=== PATIENT | female | born 1950 | race Caucasian/White ===

== ENCOUNTER → 2020-08-03 | Outpatient (CLI) | payer OTHER ==
--- NOTE | 2020-08-03 12:10 | 2DMMODE ---
[facility] [place] [address] 2 D/M-MODE ECHOCARDIOGRAM Name: SHARMILA SOLANO Room #: REG BECCA Lizzie.John.#: [id number] Admission: 08/03/20 Attend Phys: Physician not on staff Discharge: Date of : 48 Report #: [id number] THIS REPORT FOR: cc: Physician not on staff Physician not on staff Chandana Colindres MD [facility] ~ APPROVED REPORT Study performed: 08/03/2020 11:05:12 EXAM: Comprehensive 2D, Doppler, and color-flow Echocardiogram Patient Location: Out-Patient Status: routine BSA: 1.75 HR: 68 bpm BP: 124/80 mmHg Rhythm: NSR Other Information Study Quality: Good Indications Postural hypotension. 2D Dimensions RVDd: 34.66 mm IVSd: 10.33 (7-11mm) LVOT Diam: 18.98 (18-24mm) LVDd: 44.54 mm PWd: 8.16 (7-11mm) LVDs: 25.39 (25-40mm) Aortic Root: 23.59 mm Volumes Left Atrial Volume (Systole) Single Plane 4CH: 39.75 mL Single Plane 2CH: 34.83 mL LA ESV Index: 23.00 mL/m2 Aortic Valve AoV Peak Denis.: 1.11 m/s AO Peak Gr.: 4.94 mmHg LVOT Max P.87 mmHg LVOT Max V: 0.85 m/s LILA Vmax: 2.15 cm2 [facility] [address] [place] [address] 2 D/M-MODE ECHOCARDIOGRAM Name: SHARMILA SOLANO Room #: REG [facility].#: [id number] Admission: 08/03/20 Attend Phys: Physician not on s Discharge: Date of : 48 Report #: [id number] Mitral Valve E/A Ratio: 1.3 MV Decel. Time: 221.71 ms MV E Max Denis.: 0.88 m/s MV A Denis.: 0.66 m/s MV PHT: 64.30 ms IVRT: 92.27 ms Pulmonary Valve PV Peak Denis.: 0.84 m/s PV Peak Gr.: 2.79 mmHg Pulmonary Vein P Vein S: 0.53 m/s P Vein A: 0.27 m/s P Vein D: 0.69 m/s P Vein A Dur.: 152.2 msec P Vein S/D Ratio: 0.77 Tricuspid Valve TR Peak Denis.: 2.51 m/s RAP Estimate: 5.00 mmHg TR Peak Gr.: 25.22 mmHg PA Pressure: 30.00 mmHg Left Ventricle The left ventricle is normal size. There is normal LV segmental wall motion. There is normal left ventricular wall thickness. Left ventricular systolic function is normal. LVEF is 60-65%. The left ventricular diastolic function is normal. Right Ventricle The right ventricle is normal size. The right ventricular systolic function is normal. Atria The left atrium size is normal. The right atrium size is normal. Aortic Valve The aortic valve is normal in structure. No aortic regurgitation is present. There is no aortic valvular stenosis. Mitral Valve The mitral valve is normal in structure. Mild mitral regurgitation. No evidence of mitral valve stenosis. Tricuspid Valve The tricuspid valve is normal in structure. Mild tricuspid regurgitation. Estimated PAP is 30mmHg. [facility] [address] [place] [place] [address] 2 D/M-MODE ECHOCARDIOGRAM Name: SHARMILA SOLANO Room #: REG [facility].#: [id number] Admission: 08/03/20 Attend Phys: Physician not on s Discharge: Date of : 48 Report #: [id number] Pulmonic Valve Pulmonic valve is not well visualized. Trace pulmonic regurgitation. Great Vessels The aortic root is normal in size. Ascending aorta is not well visualized. IVC is normal in size and collapses >50% with inspiration. Pericardium There is no pericardial effusion. <Conclusion> Normal left ventricular size/wall thickness Ejection fraction 60% Normal right ventricle size/function Normal atrial size Color-flow Doppler study was performed of the aortic/mitral/tricuspid/pulmonary valve Mild mitral valve insufficiency Mild tricuspid valve insufficiency Pulmonary artery systolic pressure estimated 33 mmHg No pericardial effusion <ELECTRONICALLY SIGNED> By: Chandana Colindres MD, FACC 08/03/20 1210 09 09 Chandana Colindres MD, FAC /INF
== END ==
LOC: CV 08:36
DX: I08.1 Rheumatic disorders of both mitral and tricuspid valves (principal); I95.1 Orthostatic hypotension

== ENCOUNTER → 2020-09-20 | Outpatient (CLI) | payer OTHER | LOC: MRI 14:58 | DX: I67.82 Cerebral ischemia (principal); M62.81 Muscle weakness (generalized); G93.89 Other specified disorders of brain ==

== ENCOUNTER 2021-03-05 08:37 | Emergency (ER) | payer OTHER ==
[~2021-03-05] VITALS: Ht 170.2 cm; Wt 68.0 kg
[2021-03-05 09:25] LABS: ABSOLUTE NEUTROPHILS 8.6 thou/uL (1.4-8.2); BASOPHILS 0.4 % (0.0-2.0); EOSINOPHILS 1.1 % (0.0-3.0); HEMATOCRIT 39.3 % (37.0-47.0); HEMOGLOBIN 12.9 gm/dL (12.0-15.0); LYMPHOCYTES 16.8 % (24.0-44.0); MCH 29.9 pg (26.0-34.0); MCHC 32.8 g/dL (28.0-37.0); MONOCYTES 5.2 % (1.0-8.0); PLATELET COUNT 248 thou/uL (150-400); POLYS 76.5 % (36.0-66.0); RBC 4.32 mil/uL (4.20-5.00); RDW 14.3 % (10.5-14.5); WBC 11.2 thou/uL (4.0-11.0)
[2021-03-05 09:29] LABS: ANION GAP 7 mmol/L (7-16); BUN 14 mg/dL (7-18); CALCIUM 9.4 mg/dL (8.5-10.1); CHLORIDE 103 mmol/L (98-107); CO2 29 mmol/L (21-32); GLUCOSE 171 mg/dL (74-106); POTASSIUM 3.7 mmol/L (3.5-5.1); SODIUM 139 mmol/L (136-145)
--- NOTE | 2021-03-05 09:34 | EKG ---
[address] [address] ELECTROCARDIOGRAM REPORT Name: SHARMILA SOLANO Room #: PRE M.R.#: [id number] Admission: Attend Phys: Discharge: Date of : 48 Report #: [id number] [facility] ED Test Date: 2021-03-05 Test Time: 09:29:14 Pat Name: SHARMILA SOLANO Department: Room: Gender: F [employer] Crm: rogelio : 1950 Requested By: Naeem Patel Order Number: [id number] MD: Serg Jules Measurements Intervals [place] Rate: 67 P: 14 TN: 183 QRS: 74 QRSD: 88 T: 51 QT: 407 QTc: 430 Interpretive Statements Sinus rhythm No previous ECG available for comparison Electronically Signed On 03-05-2021 9:34:24 CDT by Serg Jules [email or web address] <ELECTRONICALLY SIGNED> By: Serg Jules MD 03/05/2134 8 8 Serg Jules MD /EPI
[2021-03-05 09:39] LABS: ALBUMIN 3.7 g/dL (3.4-5.0); SGOT 22 U/L (15-37); SGPT 25 U/L (14-59); TOTAL BILIRUBIN 0.5 mg/dL (0.2-1.0); TOTAL PROTEIN 7.5 g/dL (6.4-8.2); TROPONIN-I <0.06 ng/mL (<0.06)
[2021-03-05 10:48] LABS: URINE BILIRUBIN NEGATIVE (Negative); URINE BLOOD NEGATIVE (Negative); URINE CLARITY CLEAR; URINE COLOR YELLOW; URINE GLUCOSE-RANDOM* NEGATIVE (Negative); URINE KETONES NEGATIVE (Negative); URINE LEUKOCYTES-REFLEX NEGATIVE (Negative); URINE NITRITE-REFLEX NEGATIVE (Negative); URINE PROTEIN (DIPSTICK) NEGATIVE (Negative); URINE UROBILINOGEN 0.2 E.U./dl (0.2-1.0)
[2021-03-05 12:36] VITALS: BP 169/74
== END 2021-03-05 12:45 | disposition home or self-care (01) ==
LOC: ER 08:37
PROVIDERS: Emergency Medicine
DX: R42 Dizziness and giddiness (principal); Z20.822 Contact with and (suspected) exposure to COVID-19; Z88.6 Allergy status to analgesic agent; Z88.5 Allergy status to narcotic agent